=== PATIENT | male | born 1965 | race Caucasian/White ===

== ENCOUNTER → 2017-01-09 | Outpatient (CLI) | payer OTHER ==
[~2017-01-09] MED LIST: ALBUTEROL 0.5ML INH; BACTRIM DS TABL1 TA1 DOB; BACTRIM DS TABL1 TA1 PO; BENZONATATE PO; CEPHALEXIN500 M1 PO; CLEOCIN PO; DAKIN'S MODIF1000 ML EXT; FLEXERIL10 M1 PO; FLEXERIL10 MG PO; HYDROCODONE-APA1 T30 PO; IBUPROFEN800 MG PO; KEFLEX500 M1 PO; LORTAB 10/500 T1 TAB PO; LORTAB 5/500 TA1 TA1 PO; LORTAB 7.5-5001 TAB PO; LOTRISONE LOTIO30 ML TOP; MOTRIN600 MG PO; NO MEDICATIONS; OMEPRAZOLE40 M1; PERCOCET5/325 PO; VIBRAMYCIN100 M1 PO
--- NOTE | ~2017-01-09 | CT2 ---
[facility]. [facility] A Service of [facility] RADIOLOGY TEXT RESULTS PATIENT: CHRISTIANE KELLEY LOCATION: [facility] : 63 UNIT #: [id number] AGE: [address]: Robert Suarez MD SEX: M ORDER DR: [id number] [address] [address] [id number] O MR#: [id number] #: [id number] NAME: CHRISTIANE KELLEY. : 1965 SEX: M STUDY DATE/TIME: 01/09/2017 10:50 UNIT: [facility] ROOM: STUDY DESCRIPTION: CT Abd and Pelv W Cont Attending Physician: Robert Suarez M.D. Referring Physician: Robert Suarez M.D. Ordering Physician: Robert Suarez M.D. Primary Care Physician: Andrez Metzger M.D. MEDICAL IMAGING REPORT This report is preliminary unless electronic signature is present. EXAM CT of the abdomen and pelvis with contrast INDICATION Left-sided pain for 2 to 3 months. Question of a possible hernia. TECHNIQUE Axial CT images were obtained from the dome of the diaphragm through the symphysis pubis following administration of oral and intravenous contrast material. This CT exam was performed with one or more of the following radiation dose reduction techniques: automatic exposure control, adjustment of mA and/or kV according to patient size, and iterative reconstruction. FINDINGS Images through the lung bases are clear. Multiple calcified granulomata are seen within the spleen. Stomach and proximal small bowel are within normal limits as are the adrenal glands. Pancreas is also unremarkable. Gallbladder appears normal. No focal hepatic lesions are seen. Kidneys appear unremarkable. Urinary bladder appears thick-walled. There is some colonic diverticulosis although I do not see any convincing CT evidence of diverticulitis. Fairly extensive fecal burden is noted throughout the colon which may reflect some underlying constipation. Patient's appendix is visualized and is within normal limits. No free fluid or adenopathy is seen within the pelvis. Review of bony windows does not demonstrate any aggressive osseous abnormalities. There is lumbar scoliosis with convexity to the left. [facility] A Service of [facility] RADIOLOGY TEXT RESULTS PATIENT: CHRISTIANE KELLEY LOCATION: [facility] : 63 UNIT #: [id number] AGE: [address]: Robert Suarez MD SEX: M ORDER DR: IMPRESSION 1. The patient does have fairly extensive fecal burden noted throughout the colon and this certainly could reflect some constipation. Correlation with history is recommended. 2. Colonic diverticulosis without convincing CT evidence of diverticulitis. 3. No hernia is identified within the left lower quadrant abdominal wall. A marker was placed over the area of concern and no underlying abnormality is seen. 4. Overall the patient's bladder does appears somewhat thick-walled. Some of this may be related to incomplete distension and/or perhaps some bladder outlet obstruction although the prostate gland does not appear particularly enlarged. Dictated by... Zuleyma Gambino M.D. THIS IS AN ELECTRONICALLY VERIFIED REPORT Zuleyma Gambino M.D. at 01/11/2017 4:22 PM AFF/anjelica TD: 01/10/2017 01:55 JOB #: [id number] MEDICAL IMAGING REPORT Page 1 of 1
[2017-01-09 09:40] LABS: POC - CREATININE 1.06 mg/dL (0.64-1.27); POC - GFR >60.0 mL/min (>60)
== END | disposition home or self-care (01) ==
LOC: SCT 09:21
PROVIDERS: Surgery
DX: R10.9 Unspecified abdominal pain (principal); K57.30 Diverticulosis of large intestine without perforation or abscess without bleeding
CPT/HCPCS: 74177; 82565; Q9967

== ENCOUNTER → 2017-01-11 | Day surgery (SDC) | payer OTHER ==
--- NOTE | ~2017-01-11 | OR ---
Unit #: [id number] #: [id number] Patient: CHRISTIANE KELLEY [id number] [address] [place], [place] [address] [id number] O MR#: [id number] NAME: CHRISTIANE KELLEY. ROOM: Date of Procedure: 01/11/2017 Admission Date: 01/11/2017 Surgeon: Robert Suarez M.D. : 1965 Attending Physician: Robert Suarez M.D. Primary Care Physician: Andrez Metzger M.D. OPERATIVE REPORT PREOPERATIVE DIAGNOSES 1. Epigastric pain. 2. Left lower quadrant pain. POSTOPERATIVE DIAGNOSES 1. Epigastric pain. 2. Left lower quadrant pain. PROCEDURES PERFORMED 1. Esophagogastroduodenoscopy. 2. Biopsy of antrum for Helicobacter pylori testing. 3. Colonoscopy to cecum. ANESTHESIA Monitored anesthesia care. FINDINGS The patient was found to have a medium-sized hiatal hernia, mild gastritis, moderate distal esophagitis. On colonoscopy, he was found to have scattered [place]-diverticular disease. Mild internal hemorrhoids. SPECIMENS Sent to pathology. COMPLICATIONS None apparent. CONDITION The patient tolerated the procedure well. INDICATIONS FOR PROCEDURE The patient is a 51-year-old white male, who presents at this time with epigastric and left-sided pain. He had a recent CT scan, which showed no significant abnormality. He presents at this time for evaluation by upper as well as lower endoscopy. DESCRIPTION OF PROCEDURE After obtaining informed consent, the patient was brought to the endoscopy suite and after adequate monitored anesthesia care was obtained, had the endoscope placed through the mouth into the upper esophagus under direct vision. It was advanced to the second and third portion of the duodenum without difficulty with the lumen always in view. The duodenum was normal Unit #: [id number] #: [id number] Patient: CHRISTIANE KELLEY as was the duodenal bulb. The pylorus opened normally. There was some mild distal gastritis present and a biopsy was obtained for Helicobacter pylori testing. On retroflexion back to the GE junction, there was a medium sized hiatal hernia. No other abnormalities were found in the proximal third, middle third, or incisura. On pulling back above the GE junction, there was no stenosis, stricture, or neoplasm seen, but there was some distal esophagitis present. The remaining portion of the esophagus was within normal limits. Laryngeal structures were grossly normal as viewed from above. At this point in time, the colonoscope was placed through the anus and slowly advanced to the level of the cecum without difficulty with the lumen always in view. The cecum was normal as was the ileocecal valve. There was scattered [place]-diverticular disease throughout, but not very numerous in any one area. Other than this, there was no abnormality seen in the ascending colon, hepatic flexure, transverse colon, splenic flexure, descending colon, sigmoid colon, or rectum. On retroflexing in the rectum to the anorectal junction, the patient was found to have some mild internal hemorrhoids. The scope was removed without difficulty. The patient tolerated the procedure well and went from the endoscopy suite to recovery area in stable condition. RECOMMENDATIONS High-fiber diet, lots of liquids, tucks or wipes p.r.n. Gastroesophageal reflux sheet given. Diverticular sheet given. Prescription for omeprazole given. We have recommended the patient to try and decrease his tobacco and alcohol use as much as possible. Dictated by... Martha Laura/abdirahman TD: 01/11/2017 11:17 JOB #: [id number] CC: William Glass M.D. [facility] OPERATIVE REPORT Page 1 of 1 X Robert Suarez MD X PROCEDURE OPERATIVE NOTE
== END | disposition home or self-care (01) ==
LOC: COPS 07:43
DX: K44.9 Diaphragmatic hernia without obstruction or gangrene (principal); K57.30 Diverticulosis of large intestine without perforation or abscess without bleeding; K29.70 Gastritis, unspecified, without bleeding; K20.9 Esophagitis, unspecified; K64.8 Other hemorrhoids; I10 Essential (primary) hypertension; R74.8 Abnormal levels of other serum enzymes; F17.210 Nicotine dependence, cigarettes, uncomplicated; Z88.0 Allergy status to penicillin; Z88.5 Allergy status to narcotic agent; Z98.890 Other specified postprocedural states
CPT/HCPCS: 87077; J2250